=== PATIENT | female | born 1965 | race Caucasian/White ===

== ENCOUNTER → 2019-01-18 | Outpatient (CLI) | payer OTHER ==
[2019-01-18 07:29] LABS: HEMATOCRIT 37.6 % (37.0-47.0); HEMOGLOBIN 13.1 gm/dL (12.0-15.0); MCHC 34.9 g/dL (28.0-37.0); MCV 88.9 fL (80.0-100.0); RBC 4.23 mil/uL (4.20-5.00); RDW 12.7 % (10.5-14.5); WBC 4.8 thou/uL (4.0-11.0)
[2019-01-18 07:49] LABS: ALBUMIN 3.9 g/dL (3.4-5.0); CALCIUM 8.9 mg/dL (8.5-10.1); CREATININE 1.1 mg/dL (0.6-1.0); TOTAL BILIRUBIN 0.7 mg/dL (<0.1-1.0); TOTAL PROTEIN 6.9 g/dL (6.4-8.2)
== END ==
LOC: CAT 07:02
PROVIDERS: Internal Medicine Cardiovascular Disease
DX: I48.91 Unspecified atrial fibrillation (principal)

== ENCOUNTER → 2019-01-25 | Outpatient (CLI) | payer OTHER ==
[~2019-01-25] VITALS: Ht 162.6 cm; Wt 90.7 kg
[~2019-01-25] MED LIST: CALCIUM 600 +1 EAC1 PO; CARDIZEM CD120 MG PO; CLARITIN10 MG PO; COLACE100 MG PO; ESTRADIOL42.5 GM VAG; FLECAINIDE ACE100 MG PO; MOBIC15 MG PO; PAROXETINE HCL40 MG PO; PRADAXA150 MG PO; PROBIOTIC1 EAC1 PO; RANITIDINE HCL300 M1 PO; THERA M PLUS T1 EAC2 PO; VITAMIN B-12500 MCG PO; XANAX 0.25 MG0.25 MG PO
[2019-01-25 07:34] LABS: HEMATOCRIT 39.3 % (37.0-47.0); HEMOGLOBIN 13.3 gm/dL (12.0-15.0); MCH 30.1 pg (26.0-34.0); MCHC 33.8 g/dL (28.0-37.0); MCV 89.2 fL (80.0-100.0); RBC 4.41 mil/uL (4.20-5.00); RDW 12.9 % (10.5-14.5); WBC 4.9 thou/uL (4.0-11.0)
[2019-01-25 07:37] VITALS: BP 130/73
[2019-01-25 07:43] LABS: CALCIUM 9.2 mg/dL (8.5-10.1); POTASSIUM 4.1 mmol/L (3.5-5.1)
--- NOTE | 2019-01-25 12:29 | TEE ---
[facility] [employer] [place] [address] TRANSESOPHAGEAL ECHOCARDIOGRAM Name: HALEY PALACIOS Room #: REG [facility]#: [id number] ������������� Admission: 01/25/19 ������������� Attend Phys: Jatinder Franco, Discharge: ��� ������������� ��� Date of : 61 Date of Service: 01/25/19 1229 �� Report #: [id number] �������� ��������������������������������������������[id number] THIS REPORT FOR: //name// APPROVED REPORT Study performed: 01/25/2019 09:20:47 EXAM: Comprehensive 2D, Doppler, and color-flow Echocardiogram Patient Location: Out-Patient Room #: 9 Status: routine BSA: 1.96 HR: 80 bpm BP: 147/92 mmHg Rhythm: NSR Other Information Study Quality: Excellent Indications Atrial Fibrillation Echo Enhancing Agent Indication: Rule out Shunt Agent(s) / Amount(s) Used: Agitated Saline 7 cc Procedure After obtaining informed consent, patient underwent transesophageal echo in the Pediatric Critical Care Nurse Holding. Type of Sedation : Conscious Sedation Sedation was administered by Fredis Cardoza RN. Sedation was achieved intravenously with: Versed (4 mg) Fentanyl (50 mcg) Transesophageal probe was inserted and advanced into esophagus without difficulty by Jatinder Franco MD. Echo enhancement indication: R/O Septal defect. Echo enhancement agent administered: Agitated Saline The EMMA was performed without complications. Throughout the procedure, the blood pressure, pulse oximetry, cardiac rhythm, and rate were monitored. The patient tolerated the procedure without adverse effects. Recovery from conscious sedation was uneventful and vital signs were stable. [facility] [address] [place] [address] TRANSESOPHAGEAL ECHOCARDIOGRAM Name: HALEY PALACIOS Room #: REG [facility]#: [id number] ������������� Admission: 01/25/19 ������������� Attend Phys: Jatinder Franco, Discharge: ��� ������������� ��� Date of : 61 Date of Service: 01/25/19 1229 �� Report #: [id number] �������� ��������������������������������������������[id number] Left Ventricle The left ventricle is normal size. There is normal LV segmental wall motion. There is normal left ventricular wall thickness. Left ventricular systolic function is normal. The left ventricular ejection fraction is within the normal range. LVEF is 55-60%. Right Ventricle The right ventricle is normal size. The right ventricular systolic function is normal. Atria The left atrium size is normal. No thrombus is visualized in the left atrium or appendage; prominent pectinate muscles. No shunting by contrast bubble injection The right atrium size is normal. Aortic Valve The aortic valve is normal in structure. No aortic regurgitation is present. There is no aortic valvular stenosis. Mitral Valve The mitral valve is normal in structure. Mild mitral regurgitation. No evidence of mitral valve stenosis. Tricuspid Valve The tricuspid valve is normal in structure. Mild tricuspid regurgitation. Pulmonic Valve The pulmonary valve is normal in structure. There is no pulmonic valvular regurgitation. Great Vessels The aortic root is normal in size. The ascending aorta is normal in size. IVC is normal in size and collapses >50% with inspiration. Pericardium There is no pericardial effusion. <Conclusion> Left ventricular systolic function is normal. There is normal LV segmental wall motion. LVEF is 55-60%. Normal chamber sizes No thrombus is visualized in the left atrium or appendage; prominent pectinate muscles. No shunting by contrast bubble injection [facility] [address] [place] [address] TRANSESOPHAGEAL ECHOCARDIOGRAM Name: HALEY PALACIOS Room #: REG [facility]#: [id number] ������������� Admission: 01/25/19 ������������� Attend Phys: Jatinder Franco, Discharge: ��� ������������� ��� Date of : 61 Date of Service: 01/25/191228 �� Report #: [id number] �������� ��������������������������������������������[id number] The aortic valve is normal in structure. No aortic regurgitation or stenosis. The mitral valve is normal in structure. Mild mitral regurgitation. There is no pericardial effusion. ��������������������������������������������� <ELECTRONICALLY SIGNED> ���������������������������������������� By: Jatinder Franco MD, [facility] ��������������������������������������������� 01/25/191228 28 28 Jatinder Franco MD, [facility] /INF
== END | disposition home or self-care (01) ==
LOC: CATH 06:55
PROVIDERS: Internal Medicine
DX: I34.0 Nonrheumatic mitral (valve) insufficiency (principal); I48.91 Unspecified atrial fibrillation; Z98.84 Bariatric surgery status; Z79.899 Other long term (current) drug therapy; Z79.01 Long term (current) use of anticoagulants

== ENCOUNTER 2019-01-31 06:31 | Observation (INO) | payer OTHER ==
[2019-01-31] VITALS (13 sets, daily range): BP systolic 99–135; BP diastolic 48–80
[~2019-01-31] VITALS: Ht 162.6 cm; Wt 97.3 kg
--- NOTE | ~2019-01-31 | P ---
[facility] [place] [address] [place] [address] PROCEDURE REPORT Name: HALEY PALACIOS Room #: 215-P [facility] M.R.#: [id number] Admission: 01/31/19 ������������������ Attend Phys: uHgo Oneal MD Discharge: ������������������ Date of : 61 Report #: [id number] THIS REPORT FOR: //name// CC: CORTNEY Flores DATE OF SERVICE: 01/31/2019 PREOPERATIVE DIAGNOSIS: Paroxysmal atrial fibrillation. POSTOPERATIVE DIAGNOSIS: Paroxysmal atrial fibrillation. HISTORY: The patient is a 53-year-old with paroxysmal AFib, who has failed antiarrhythmic drugs and is here for an ablation. PROCEDURES PERFORMED: 1. Atrial fibrillation ablation, CPT code 76238. 2. 3D mapping, CPT code 62059. 3. Intracardiac echo, CPT code 97438. 4. Program stimulation and pacing after IV drug infusion, CPT code 72212. ANESTHESIA: The patient underwent general anesthesia with no anesthesia related complications. DESCRIPTION OF PROCEDURE: The patient underwent informed consent. We discussed the details of the procedure including the risks, which include but not limited to bleeding, vascular damage, cardiac perforation as well as stroke or SD. She understood these risks and is willing to proceed. The patient was brought to the EP laboratory in a fasting and sedated state and prepped and draped in a sterile fashion. I obtained access to the right femoral vein x 3, placing a 9, 8 and 7-Surinamese short sheath using the modified Seldinger technique. Next, under fluoroscopy, a decapolar catheter was placed easily in the coronary sinus and ice catheter was placed in the right atrium. Detailed 3D geometry of the left atrium was created using [employer]. This was merged with the cardiac CT scan and the patient was then systemically heparinized. Of note, there was a large eustachian ridge noted in the right atrium, which was visualized on intracardiac ultrasound. Using an SL1 sheath and a Madison needle, a transseptal was performed and I was able to advance my guidewire into the left superior pulmonary vein. I attempted to advance the SL1 sheath into the left atrium and this was unsuccessful due to likely a fibrotic interatrial septum. I therefore exchanged to my cryo sheath and again, I could not cross with this into the left atrium either. Therefore, I transitioned back to the SL1 sheath and then used a Powerflex Pro 6 mm x 4 cm balloon to dilate the interatrial [facility] [address] [place] [address] PROCEDURE REPORT Name: HALEY PALACIOS Room #: 215-P [facility].#: [id number] Admission: 01/31/19 ������������������ Attend Phys: Hugo Oneal MD Discharge: ������������������ Date of : 61 Report #: [id number] septum. I then removed the balloon and the SL1 sheath and I was able to advance the cryo sheath into the left atrium without any further resistance. Next, the cryoablation balloon was placed into the left atrium and prior to that, a Carto Lasso catheter was placed in the left atrium to create a detailed 3D geometry. Next, I started by isolating the left superior pulmonary vein. I performed an initial freeze of 4 minutes' duration, which did not result in isolation. I performed a second freeze, but attempts were not very good, so I came off after about 50-60 seconds and then performed a second freeze of 4 minutes' duration, which resulted in isolation within 28 seconds. I turned my attention in the left inferior pulmonary vein and performed a 4-minute freeze, the vein isolated within 27 seconds of this freeze. I turned my attention to the right superior pulmonary vein and I performed an 80-second and 50-second freeze. During the 50-second freeze, it appeared the vein had already isolated, but the attempts were not very good. I therefore performed a third freeze of 4 minutes' duration and I obtained a maximal minus temperature of -35 degrees. Post-ablation, this vein appeared to be isolated. I then engaged the right middle pulmonary vein. There was not much signal noted in this vessel and therefore, I performed a single freeze of 180 seconds duration. I then turned my attention to the right inferior pulmonary vein and I performed a 4-minute freeze. This vein isolated within 57 seconds. Next, all veins were re-interrogated. There was evidence of large far field left atrial appendage signals in the left superior pulmonary vein and pacing around the catheter, this was clearly isolated. All other veins appeared isolated. POST ABLATION ELECTROPHYSIOLOGY STUDY: Post-ablation, the basic EP study was performed. AV block was noted at 320 milliseconds. AV domo ERP was noted at 220 milliseconds at a 500 millisecond basic cycle length. There were occasional single AV domo echoes. I therefore initiated isoproterenol at 2 mcg per minute. AV block was noted at less than 260 milliseconds. Atrial single and double extrastimuli were delivered and no SVT was induced. Atrial ERP was noted at 200 milliseconds at a [address] cycle length. Isoproterenol infusion was increased to 3 mcg per minute. Additional testing was performed and I could not induce any SVT. Isoproterenol was turned off and we continued testing and no SVT was induced. As such, the procedure was concluded. The patient received systemic protamine. Using intracardiac ultrasound, I verified there was no pericardial effusion. Once the ACT was within acceptable syringe, all catheters and sheaths were pulled and hemostasis was obtained. The patient awoke neurologically and hemodynamically intact. CONCLUSIONS: 1. Successful AFib ablation with isolation of the 4 pulmonary veins as well as [facility] [address] [place] [address] PROCEDURE REPORT Name: HALEY PALACIOS Room #: 215-P [facility] Jesse#: [id number] Admission: 01/31/19 ������������������ Attend Phys: Hugo Oneal MD Discharge: ������������������ Date of : 61 Report #: [id number] isolation of the right middle pulmonary vein. 2. Normal EP study with no inducible arrhythmias. ��������������������������������������������� ���������������������������������������� By: ��������������������������������������������� 1149 1536 Hugo Oneal MD /nt
[~2019-01-31 06:31] MED LIST changes: -VITAMIN B-12500 MCG PO
[2019-01-31 07:37] LABS: APTT 32.1 Seconds (24.5-32.8)
--- NOTE | 2019-01-31 17:10 | NUR ---
ASSUMED CARE AT 1400, SHIFT ASSESSMENT DONE, ADMISSION DONE. VSS. POST CATH PRECAUTIONS IN PLACE. BED REST UNITL 1830. HIGGINS IN PLACE. SEE POST CATH FLOW SHEET FOR VS. RIGHT GROIN SITE IN SOFT TO TOUCH, NO SIGNS OF HEMATOMA, PULSES PRESNET, SENSATION INTANCT. WILL CONTINUE TO ASSESS AND ASSIST WITH ADLs NEEDED.
--- NOTE | 2019-01-31 19:13 | NUR ---
PATIENT CAME OFF REST AT 1815, VSS, RIGHT GROIN SITE IS SOFT TO TOUCH, DRESSING CLEAN, DRY, INTACT. HIGGINS WAS TAKEN OUT, WAS ABLE TO URINATE. SITTING IN THE CHAIR AND EATING DINNER. REPROT GIVEN TO NIGHT NURSE.
[2019-02-01 00:49] VITALS: BP 108/62
[2019-02-01 04:35] VITALS: BP 108/68
--- NOTE | 2019-02-01 05:45 | NUR ---
ASSUME CARE 1900. PT/VITALS STABLE/ DENIESANY PAIN. UP AD SHERRIE. ASSESSMENT S CHARTED. PROGRESSING WELL WITH POC. RIGHT GROIN SITE CDI. SINUS RHYTHM NOTED ON MONITOR ALL THROUGH SHIFT WITH HR IN 70s. POT COMPLAINS OF HAVING VERY SHORT EPISODES OF PALPITATIONS THAT START AND END ALMOST IMMEDIATELY. EDUCATED ON IT BEING NORMAL SINCE THE HEART IS IRRITATED BUT TO ALSO INFORM THE MD IN CASE ERIS IS SOMETHING EWE ARE MISSING. MONITORED HR/RYHTHM ALL NIGHT. PLAN IS POSSIBLE DISCHARGE TODAY. WILL CONTINUE TO FOLLOW [facility] POC
[2019-02-01 07:10] VITALS: BP 110/64
[2019-02-01] MEDS ORDERED: ASPIR 8181 M1 PO (08:03)
[2019-02-01] MEDS ORDERED: VITAMIN B-12500 MCG PO (08:08)
[2019-02-01 08:24] VITALS: BP 110/64
--- NOTE | 2019-02-01 10:09 | NUR ---
PT CARE ASSUMED APPROX 0700. PT ALERT AND ORIENTED X4. VSS. UP WITH STEADY GAIT. RIGHT GROIN POST SHEATH SITE C/D/I. SITE ASSESSED BY CV STAFF CERTIFIED NURSE MIDWIFE, DISCHARGE INSTRUCTIONS REVIEWED WITH CV STAFF CERTIFIED NURSE MIDWIFE. PT DENIES QUESTIONS REGARDING MEDS, SITE CARE, ACTIVITY RESTRICTIONS, F/U APPTS AND GENERAL POST HOSPITAL CARE. IV OUT, TELE BOX OFF. NO ISSUES WITH DISCHARGE. PT ESCORTED OUT BY HOSPITAL STAFF.
== END 2019-02-01 10:18 | disposition home or self-care (01) ==
LOC: CATH 06:31 → 2N 13:21 → CATH 14:39 → ENTRNSPT 02-01 09:51 → EDTRNSPTSTS 02-01 10:02 → 2N 02-01 10:18
PROVIDERS: ADMIT Internal Medicine Cardiovascular Disease
DX: I48.0 Paroxysmal atrial fibrillation (principal); Z88.2 Allergy status to sulfonamides; Z88.8 Allergy status to other drugs, medicaments and biological substances; Z98.890 Other specified postprocedural states
CPT/HCPCS: 62110; 62900; 65020; 65040; 70005

== ENCOUNTER → 2019-06-25 | Outpatient (CLI) | payer OTHER ==
[~2019-06-25] MED LIST changes: +ASPIR 8181 M1 PO; +VITAMIN B-12500 MCG PO
[2019-06-25 11:29] VITALS: BP 126/78
--- NOTE | 2019-07-08 14:09 | P ---
[facility] [place] [address] PROCEDURE REPORT Name: HALEY PALACIOS [facility] [id number] Admission: 06/25/19 Attend Phys: Hugo Oneal MD Discharge: Date of : 61 Report #: [id number] THIS REPORT FOR: //name// CC: CORTNEY Flores PROCEDURE: Implantable loop recorder insertion. PREOPERATIVE DIAGNOSIS: Atrial fibrillation. POSTOPERATIVE DIAGNOSIS: Atrial fibrillation. DESCRIPTION OF PROCEDURE: The patient underwent informed consent. She was prepped in a sterile fashion. I injected lidocaine at the incision site. Incision was made. The device was checked under the skin and a single suture was performed at the skin layer. There were no procedure related complications. Implanted device was a [employer], model #3500, serial #[id number]. CONCLUSIONS: Successful implantation of an implantable loop recorder. <ELECTRONICALLY SIGNED> By: Hugo Oneal MD 07/08/19 1409 1346 1548 Hugo Oneal MD /nt
--- NOTE | 2019-07-08 14:09 | H ---
[facility] [address] [address] HISTORY AND PHYSICAL Name: HALEY PALACIOS Room #: REG [facility].#: [id number] Admission: 06/25/19 Attend Phys: Hugo Oneal MD Discharge: Date of : 61 Report #: [id number] THIS REPORT FOR: //name// CC: CORTNEY Flores HISTORY OF PRESENT ILLNESS: The patient is a patient with history of AFib and recurrent palpitations here for implantable loop recorder insertion. PAST MEDICAL HISTORY: AFib. SOCIAL HISTORY: Does not smoke. FAMILY HISTORY: Noncontributory. ALLERGIES TO MEDICATIONS: Reviewed. PHYSICAL EXAMINATION: GENERAL: No acute distress. HEART: Regular rate and rhythm. LUNGS: Clear to auscultation bilaterally. ASSESSMENT AND PLAN: Atrial fibrillation. Plan will be to proceed with implantable loop recorder insertion. <ELECTRONICALLY SIGNED> By: Hugo Oneal MD 07/08/19 1409 1344 08 Hugo Oneal MD /nt
== END | disposition home or self-care (01) ==
LOC: CATH 11:03
DX: I48.91 Unspecified atrial fibrillation (principal); Z79.01 Long term (current) use of anticoagulants; Z88.2 Allergy status to sulfonamides; Z88.8 Allergy status to other drugs, medicaments and biological substances; Z79.82 Long term (current) use of aspirin; Z79.899 Other long term (current) drug therapy

== ENCOUNTER → 2019-12-24 | Outpatient (CLI) | payer OTHER | LOC: SJCVC 10:19 | PROVIDERS: ATTEND Internal Medicine Cardiovascular Disease | DX: I48.0 Paroxysmal atrial fibrillation (principal); K21.9 Gastro-esophageal reflux disease without esophagitis; Z90.710 Acquired absence of both cervix and uterus; Z79.899 Other long term (current) drug therapy; Z87.891 Personal history of nicotine dependence ==

== ENCOUNTER 2020-06-26 19:55 | Emergency (ER) | payer OTHER ==
[~2020-06-26] VITALS: Ht 162.6 cm; Wt 113.4 kg
--- NOTE | ~2020-06-26 | EKG ---
[facility] [place] [address] ELECTROCARDIOGRAM REPORT Name: HALEY PALACIOS [facility] [id number] Admission: 06/26/20 Attend Phys: Discharge: 06/26/20 Date of : 61 Report #: [id number] THIS REPORT FOR: cc: Olegario Flores,Jordan Cee MD ~ THIS REPORT FOR: //name// [facility] ED Test Date: 2020-06-26 Test Time: 20:15:05 Pat Name: HALEY PALACIOS Department: Room: Gender: F Music Adapter: : 1965 Requested By: Natalio Genao Order Number: [id number] MD: Measurements Intervals [place] Rate: 116 P: 46 ND: 138 QRS: 21 QRSD: 80 T: 12 QT: 332 QTc: 462 Interpretive Statements Sinus tachycardia Posterior infarct, recent Compared to ECG 06/26/2020 19:58:24 Myocardial infarct finding now present Supraventricular tachycardia no longer present Early repolarization no longer present [email or web address] By: 14 14 Epiphany Epiphany, /EPI
--- NOTE | ~2020-06-26 | EKG ---
[facility] [place] [address] ELECTROCARDIOGRAM REPORT Name: HALEY PALACIOS Room #: PRE [facility]..#: [id number] Admission: Attend Phys: Discharge: Date of : 61 Report #: [id number] THIS REPORT FOR: cc: Mark,Olegario Bustamante,Jordan Cee MD ~ THIS REPORT FOR: //name// [facility] ED Test Date: 2020-06-26 Test Time: 19:58:24 Pat Name: HALEY PALACIOS Department: Room: Gender: F Acid Splicer: rosendo : 1965 Requested By: Natalio Genao Order Number: [id number] MD: Measurements Intervals [place] Rate: 248 P: -3 KS: 76 QRS: 29 QRSD: 92 T: 261 QT: 223 QTc: 453 Interpretive Statements Supraventricular tachycardia Repolarization abnormality, prob rate related Artifact in lead(s) I,II,III,aVR,V1,V2,V3,V4,V5,V6 and baseline wander in lead(s) V2,V3,V4,V5,V6 No previous ECG available for comparison [email or web address] By: 57 57 Epiphany Epiphany, [place] /EPI
[2020-06-26 20:20] LABS: BASOPHILS 0.6 % (0.0-2.0); EOSINOPHILS 1.9 % (0.0-3.0); HEMOGLOBIN 12.4 gm/dL (12.0-15.0); LYMPHOCYTES 25.4 % (24.0-44.0); MCH 27.9 pg (26.0-34.0); MCHC 32.6 g/dL (28.0-37.0); MCV 85.5 fL (80.0-100.0); MONOCYTES 9.5 % (1.0-8.0); PLATELET COUNT 457 thou/uL (150-400); POLYS 62.6 % (36.0-66.0); RBC 4.45 mil/uL (4.20-5.00); RDW 13.7 % (10.5-14.5); WBC 11.2 thou/uL (4.0-11.0)
[2020-06-26 20:23] LABS: ANION GAP 15 mmol/L (7-16); BUN 17 mg/dL (7-18); CALCIUM 9.4 mg/dL (8.5-10.1); CHLORIDE 99 mmol/L (98-107); CO2 22 mmol/L (21-32); CREATININE 1.4 mg/dL (0.6-1.0); GLUCOSE 194 mg/dL (74-106); POTASSIUM 3.8 mmol/L (3.5-5.1); SODIUM 136 mmol/L (136-145)
[2020-06-26 20:34] LABS: MAGNESIUM 2.2 mg/dL (1.8-2.4); TROPONIN-I <0.06 ng/mL (<0.06)
[2020-06-26] MEDS ORDERED: CARDIZEM CD120 MG PO (21:16)
[2020-06-26 21:46] VITALS: BP 127/76
== END 2020-06-26 21:57 | disposition home or self-care (01) ==
LOC: ER 19:55
PROVIDERS: Emergency Medicine
DX: I47.1 Supraventricular tachycardia (principal); I48.91 Unspecified atrial fibrillation; K21.9 Gastro-esophageal reflux disease without esophagitis; Z90.710 Acquired absence of both cervix and uterus; Z90.89 Acquired absence of other organs; Z79.82 Long term (current) use of aspirin; Z79.899 Other long term (current) drug therapy; Z88.2 Allergy status to sulfonamides; Z88.8 Allergy status to other drugs, medicaments and biological substances

== ENCOUNTER → 2020-07-06 | Outpatient (CLI) | payer OTHER | LOC: LAB 13:41 | PROVIDERS: ATTEND Internal Medicine Cardiovascular Disease | DX: Z01.812 Encounter for preprocedural laboratory examination (principal); Z20.828 Contact with and (suspected) exposure to other viral communicable diseases ==

== ENCOUNTER 2020-07-09 06:20 | Observation (INO) | payer OTHER ==
[2020-07-09] VITALS (11 sets, daily range): BP systolic 122–151; BP diastolic 72–92
[~2020-07-09] VITALS: Ht 162.6 cm; Wt 113.4 kg
--- NOTE | ~2020-07-09 | D ---
[facility] [place] [address] DISCHARGE SUMMARY Name: HALEY PALACIOS Room #: 212-P [facility] Jo M.RAldair#: [id number] Admission: 07/09/20 Attend Phys: Hugo Oneal MD Discharge: 07/10/20 Date of : 61 Report #: [id number] THIS REPORT FOR: cc: Olegario Flores,Olegario Velez,Hugo Rocha MD ~ CC: Hugo Flores DATE OF SERVICE: 07/10/2020 DISCHARGE DIAGNOSES: AV domo reentrant tachycardia. PROCEDURE PERFORMED: SVT ablation. HISTORY OF PRESENT ILLNESS: The patient is a 54-year-old female with history of atrial fibrillation, status post prior ablation, who also has an implantable loop recorder, who recently had an episode of SVT documented in the Emergency Room that was terminated with adenosine. She was here for SVT ablation. She underwent successful ablation of typical AVNRT. At the end of the procedure, she did aspirate after vomiting and she was intubated, suctioned and then extubated. The anesthesiology service recommended that we monitor her overnight to ensure that she is doing okay. HOSPITAL COURSE: The patient was monitored in the CCU overnight and did well. On the day of discharge, she denied any chest pain or shortness of breath. She had no fevers or chills. PHYSICAL EXAMINATION: GENERAL: No acute distress. HEART: Regular rate and rhythm. LUNGS: Clear to auscultation bilaterally. ABDOMEN: Soft, nontender. EXTREMITIES: No clubbing, cyanosis or edema. She had a portable chest x-ray post-ablation, which showed no acute issues. She had a PA and lateral chest x-ray this morning, which showed no pneumonia. She did receive empiric IV antibiotics overnight. Given that she was doing okay, I decided she did not need antibiotics at home. She will be discharged on her same home medications. She will call if she starts developing fevers, chills, [facility] [address] [place] [address] DISCHARGE SUMMARY Name: HALEY PALACIOS Room #: 212-P [facility] M.R.#: [id number] Admission: 07/09/20 Attend Phys: Hugo Oneal MD Discharge: 07/10/20 Date of : 61 Report #: [id number] productive cough or shortness of breath. She may be developing pneumonia. Otherwise, I will see her in the clinic in 3 months. By: 1135 0411 Hugo Oneal MD /nt
[2020-07-09 07:48] LABS: ABSOLUTE NEUTROPHILS 4.5 thou/uL (1.4-8.2); HEMATOCRIT 34.7 % (37.0-47.0); HEMOGLOBIN 11.2 gm/dL (12.0-15.0); MCH 27.3 pg (26.0-34.0); MCHC 32.1 g/dL (28.0-37.0); MCV 84.8 fL (80.0-100.0); MONOCYTES 8.3 % (1.0-8.0); PLATELET COUNT 323 thou/uL (150-400); POLYS 63.7 % (36.0-66.0); RBC 4.09 mil/uL (4.20-5.00); RDW 14.1 % (10.5-14.5)
[2020-07-09] MEDS ORDERED: B-125000 MC1 PO (07:51)
[2020-07-09 07:53] LABS: CALCIUM 9.2 mg/dL (8.5-10.1); POTASSIUM 4.4 mmol/L (3.5-5.1)
[2020-07-09] MEDS ORDERED: OMEPRAZOLE 20 M20 M1 PO (07:58)
[2020-07-09] MEDS ORDERED: DICLOFENAC SODI75 MG PO (07:59)
[2020-07-09 08:01] LABS: ALBUMIN 3.9 g/dL (3.4-5.0); TOTAL BILIRUBIN 0.6 mg/dL (0.2-1.0); TOTAL PROTEIN 7.5 g/dL (6.4-8.2)
[2020-07-09] MEDS ORDERED: CARTIA XT120 M1 PO (08:01)
[2020-07-09] MEDS ORDERED: FLEXERIL PO (08:01)
[2020-07-09 08:05] LABS: APTT 25.2 Seconds (24.5-32.8); INR 1.1; PROTIME 10.7 Seconds (9.3-11.4)
[2020-07-10 00:08] VITALS: BP 129/68
[2020-07-10 05:46] VITALS: BP 141/94
[2020-07-10 08:00] VITALS: BP 171/86
[2020-07-10] MEDS ORDERED: AUGMENTIN 500-1 EACH PO (11:13)
--- NOTE | 2020-07-10 12:03 | P ---
[facility] [place] [address] [place] [address] PROCEDURE REPORT Name: HALEY PALACIOS Room #: 212-P [facility] M.R.#: [id number] Admission: 07/09/20 Attend Phys: Hugo Oneal MD Discharge: Date of : 61 Report #: [id number] THIS REPORT FOR: cc: Olegario Flores,Olegario Velez,Hugo Rocha MD ~ CC: Hugo Flores DATE OF SERVICE: 07/09/2020 PREOPERATIVE DIAGNOSIS: Supraventricular tachycardia. POSTOPERATIVE DIAGNOSIS: Typical atrioventricular domo reentrant tachycardia. HISTORY: The patient is a 54-year-old female with a history of paroxysmal atrial fibrillation, status post AFib ablation and implantation of a loop recorder. She recently had an episode of palpitations, went to the Emergency Room and had an EKG consistent with AVNRT, which successfully was terminated with a dose of adenosine. She is here for SVT ablation. ANESTHESIA: The patient underwent MAC anesthesia. She did well for the majority of the procedure. At the end of the procedure, she did ask for it and required transient intubation to suction her gastric contents. She was extubated and sent to recovery in a stable condition. PROCEDURES PERFORMED: 1. SVT ablation, CPT code 76965. 2. EP with left atrial pacing and recording, CPT code 64266. 3. A 3D mapping, CPT code 92777. DESCRIPTION OF PROCEDURE: The patient was brought to the EP laboratory in a fasting and sedated state, prepped and draped in a sterile fashion. I obtained access to the right femoral vein x 4, placing an ____ Liberian short sheath and a 7-Liberian short sheath. Next, under fluoroscopy, 3 quadripolar catheters were placed at the HRA, His and RV positions and a decapolar catheter was placed into the coronary sinus for left atrial pacing and recording. Of note while placing catheters, the patient went into SVT that appeared to be consistent with typical AV domo reentrant tachycardia. We attempted to entrain this and it was unsuccessful. Next, a basic EP study was performed. At baseline, the patient was in sinus rhythm with sinus cycle length of 515 milliseconds, P-R interval 120 milliseconds, QRS duration 75 milliseconds, QT interval 340 milliseconds, AH interval 65 milliseconds, HV interval of 37 milliseconds. Next, atrial burst pacing was performed and the patient went into SVT with a tachycardia cycle length of 300 milliseconds, a septal VA time of 35 milliseconds and again, an attempt to entrain was unsuccessful. Atrial burst pacing was continued and AV [facility] [address] [place] [address] PROCEDURE REPORT Name: HALEY PALACIOS Room #: 212-P [facility] M.R.#: [id number] Admission: 07/09/20 Attend Phys: Hugo Oneal MD Discharge: Date of : 61 Report #: [id number] block was noted at 300 milliseconds. Atrial ERP was noted at 240 milliseconds at a [address] cycle length with evidence of a jump in AV domo echoes. Next, ventricular pacing was performed and VA block was noted at 240 milliseconds. Ventricular ERP was noted at 200 milliseconds at a [address] cycle length. VA conduction was both midline and decremental. Next, I was able to easily induce SVT with either atrial burst pacing or single or double atrial extrastimuli and was not able to entrain it but it did terminate once with atrial signal consistent with typical AVNRT. As such, the patient was prepped for SVT ablation. Next, I removed my HRA catheter and an 8-Liberian short sheath and placed an SR0 sheath and 4 mm Biosense Ash ablation catheter into the right atrium. The patient's 3D geometry was created and the slow pathway was approximately 20 mm from the His bundle. Ablation was performed at 50 sahu and 55 degrees. Of note, the slow pathway signals were a little larger than usual and it appeared to be more consistent with a coronary sinus signal; however, at this site, ablation resulted in nice junctionals. A total of 5 lesions were performed, 2 of which had nice junctionals. As such, post-ablation testing was performed. Post-ablation, the patient remained in sinus rhythm. Atrial and ventricular pacing maneuvers were performed and no inducible SVT was noted. There was an occasional, single AV domo echo noted. AV block was noted at 300 milliseconds. Atrial ERP was noted at 200 milliseconds at a [address] cycle length. Post-ablation, the patient was in sinus rhythm with sinus cycle length of 500 milliseconds, P-R interval of 140 milliseconds, QRS duration 80 milliseconds, QT interval 300 milliseconds, AH interval 75 milliseconds and HV interval of 45 milliseconds. As we were finishing up the procedure, the patient did aspirate and required transient intubation which the Anesthesiology Service performed. They suctioned her and were able to extubate her with good oxygen saturations. Catheters and sheaths were pulled and hemostasis was obtained. CONCLUSIONS: 1. Successful ablation of typical AV domo reentrant tachycardia. 2. Normal SA domo function. 3. Normal AV domo function. 4. Normal His-Purkinje function. 5. No other inducible arrhythmias, on or off isoproterenol. <ELECTRONICALLY SIGNED> By: Hugo Oneal MD 07/10/20 1203 1044 0028 Hugo Oneal MD /reji
[2020-07-10 12:21] VITALS: BP 171/86
--- NOTE | 2020-07-10 12:28 | EKG ---
[facility] [place] [address] ELECTROCARDIOGRAM REPORT Name: HALEY PALACIOS Room #: 212- ADM 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 : 1965 Requested By: Hugo Oneal Order Number: [id number] MD: Yared Hogan Measurements Intervals [place] Rate: 89 P: 52 MD: 120 QRS: 11 QRSD: 82 T: 17 QT: 360 QTc: 439 Interpretive Statements Sinus rhythm LVH by voltage Compared to ECG 06/26/2020 20:15:05 Left ventricular hypertrophy now present Sinus tachycardia no longer present Electronically Signed On 07-10-2020 12:28:06 [employer] by Yared Hogan [email or web address] <ELECTRONICALLY SIGNED> By: Yared Hogan MD, FACC 07/10/20 1228 1039 [id number] Yared Hogan MD, [facility] /EPI
== END 2020-07-10 13:11 | disposition home or self-care (01) ==
LOC: CATH 06:20 → 2N 15:04
PROVIDERS: ADMIT Internal Medicine Cardiovascular Disease; ATTEND Internal Medicine Cardiovascular Disease
DX: I47.1 Supraventricular tachycardia (principal); I48.0 Paroxysmal atrial fibrillation; Z79.82 Long term (current) use of aspirin; Z79.899 Other long term (current) drug therapy
CPT/HCPCS: 70005